=== PATIENT | male | born 1965 | race African-American/Black ===

== ENCOUNTER 2025-08-10 22:22 | Inpatient (IN) | payer MEDICAID ==
[~2025-08-10] VITALS: Ht 182.9 cm; Wt 65.5 kg
[2025-08-11] MEDS: SODIUM CHLORIDE 0.9% 1,000 ML IV ONE (00:59)
[2025-08-11 01:12] LABS: PLATELET COUNT (AUTO) 172 K/uL (150-450); RED BLOOD CELL COUNT(AUTO) 5.01 MIL/uL (4.50-5.90); RED CELL DISTRIBUTION WIDTH 14.6 % (11.5-14.5); WHITE BLOOD COUNT (AUTO) 11.1 K/uL (4.5-11.0)
[2025-08-11 01:15] LABS: CALCIUM, TOTAL 9.1 mg/dL (8.8-10.5); CREATININE 1.07 mg/dL (0.60-1.30); GLOMERULAR FILTR. RATE CALC > 60 mL/min (>60); GLUCOSE,RANDOM 108 mg/dL (70-110); SODIUM SERUM 139 mmol/L (136-145); UREA NITROGEN, BLOOD 16 mg/dL (7-18)
[2025-08-11 01:22] LABS: ASPARTATE AMINOTRANSFERASE 22.0 U/L (15-37); TOTAL PROTEIN, SERUM 7.4 g/dL (6.4-8.2)
[2025-08-11] MEDS: PIPERACILLIN/TAZO 3.375 GM/D5W 50 ML IV ONE (01:39)
[2025-08-11] MEDS: PANTOPRAZOLE SODIUM 40 MG/VIAL IVP ONE (01:39)
[2025-08-11 01:45] LABS: LACTIC ACID 1.1 mmol/L (0.4-2.0)
[2025-08-11] MEDS ORDERED: VALB40CA2 PO (02:40)
[2025-08-11] MEDS ORDERED: OLAN5TAB77 PO (02:40)
[2025-08-11] MEDS ORDERED: TRAZ-184 PO (02:40)
[2025-08-11] MEDS ORDERED: PROP20TA18 PO (02:40)
[2025-08-11] MEDS ORDERED: OLAN15TA21 PO (02:40)
[2025-08-11 15:42] VITALS: BP 165/88; PULSE 158; RESP 17; TEMP 97.7; O2SAT 98
[2025-08-11] MEDS ORDERED: ZOLPIDEM TARTRATE 5 MG TABLET PO PRN (18:15)
[2025-08-11] MEDS ORDERED: MAGNESIUM HYDROXIDE SUSPENSION 30 ML UDCUP PO PRN (18:15)
[2025-08-11] MEDS ORDERED: BISACODYL 10 MG RECTAL RECTAL SUPPOSITORY PR PRN (18:15)
[2025-08-11] MEDS ORDERED: HYDROCODONE/ACETAMINOPHEN 5-325 MG TABLET PO PRN (18:15)
[2025-08-11] MEDS ORDERED: ONDANSETRON HCL 4 MG/2 ML VIAL IVP PRN (18:15)
[2025-08-11] MEDS ORDERED: ACETAMINOPHEN 325 MG TABLET PO PRN (18:15)
[2025-08-11] MEDS ORDERED: MORPHINE SULFATE 2 MG/ML SYRINGE IVP PRN (18:15)
[2025-08-11 19:00] LABS: GLUCOMETER DEV NAME(LOC) 5S.2D; GLUCOSE,POINT OF CARE 120 MG/DL (70-110)
[2025-08-11] MEDS: IPRATROPIUM BROMIDE 0.5 MG/2.5 ML NEB SOLUTION NEB PRN (19:38)
[2025-08-11] MEDS: ALBUTEROL SULFATE 2.5 MG/0.5 ML NEB SOLUTION NEB PRN (19:38)
[2025-08-11 19:43] VITALS: PULSE 87; RESP 25; O2SAT 98
[2025-08-11 19:44] VITALS: PULSE 87; RESP 25; O2SAT 98
[2025-08-11] MEDS: AZITHROMYCIN 500 MG/NS 250 ML IV SCH (20:14)
[2025-08-11] MEDS: PROPRANOLOL HCL 20 MG TABLET PO SCH (20:17)
[2025-08-11] MEDS ORDERED: [UNRECOGNIZED DRUG - OTHER] PO SCH (21:00)
[2025-08-11] MEDS ORDERED: MISC MED-CONVERTED FROM AMBULATORY (Valbenazine Tosylate (Ingrezza) 1 CAPSULE) PO SCH (21:00)
[2025-08-11] MEDS ORDERED: SODIUM CHLORIDE 0.9% 1,000 ML ONE (21:06)
[2025-08-11 21:31] VITALS: BP 126/86; PULSE 93; RESP 19; TEMP 98.6; O2SAT 98
[2025-08-11] MEDS: CefTRIAXone 1 GM/DEXTROSE 50 ML IV SCH (22:45)
[2025-08-11 23:57] VITALS: BP 149/96; PULSE 65; RESP 19; TEMP 99.1; O2SAT 100
[2025-08-12] MEDS: HEPARIN SODIUM,PORCINE 5,000 UNITS/ML VIAL SQ SCH (00:49)
[2025-08-12] MEDS: MORPHINE SULFATE 4 MG/ML SYRINGE IVP PRN (02:11)
[2025-08-12 04:26] VITALS: BP 104/61; PULSE 56; RESP 18; TEMP 97.5; O2SAT 99
[2025-08-12 07:23] LABS: PLATELET COUNT (AUTO) 168 K/uL (150-450); RED BLOOD CELL COUNT(AUTO) 4.46 MIL/uL (4.50-5.90); RED CELL DISTRIBUTION WIDTH 14.7 % (11.5-14.5); WHITE BLOOD COUNT (AUTO) 8.6 K/uL (4.5-11.0)
[2025-08-12 07:28] LABS: APPEARANCE,URINE CLEAR (CLEAR); GLUCOSE, URINE (UA) NEGATIVE (NEGATIVE); LEUKOCYTE ESTERASE ,URINE NEGATIVE (NEGATIVE); NITRATE,URINE NEGATIVE (NEGATIVE); OCCULT BLOOD,URINE NEGATIVE (NEGATIVE); SPECIFIC GRAVITIY, URINE 1.018 (1.003-1.030)
[2025-08-12 07:34] LABS: CALCIUM, TOTAL 8.4 mg/dL (8.8-10.5); CREATININE 1.09 mg/dL (0.60-1.30); GLOMERULAR FILTR. RATE CALC > 60 mL/min (>60); GLUCOSE,RANDOM 87 mg/dL (70-110); SODIUM SERUM 141 mmol/L (136-145); UREA NITROGEN, BLOOD 14 mg/dL (7-18)
[2025-08-12 07:37] VITALS: BP 122/82; PULSE 54; RESP 18; TEMP 97.8; O2SAT 98
[2025-08-12] MEDS: PANTOPRAZOLE SODIUM 40 MG DR TABLET PO SCH (08:31)
[2025-08-12] MEDS: DEXTROSE 5%-0.45% SODIUM CHL 1,000 ML IV SCH (10:15)
[2025-08-12 11:09] VITALS: BP 118/85; PULSE 51; RESP 18; TEMP 98.2; O2SAT 97
[2025-08-12 15:33] VITALS: BP 114/72; PULSE 58; RESP 18; TEMP 98.2; O2SAT 96
[2025-08-12 19:26] VITALS: BP 115/78; PULSE 56; RESP 18; TEMP 99.3; O2SAT 100
[2025-08-12 23:21] VITALS: BP 111/91; PULSE 57; RESP 19; TEMP 98.2; O2SAT 99
[2025-08-13 03:31] VITALS: BP 120/82; PULSE 53; RESP 19; TEMP 97.9; O2SAT 100
[2025-08-13 07:26] LABS: PLATELET COUNT (AUTO) 189 K/uL (150-450); RED BLOOD CELL COUNT(AUTO) 4.59 MIL/uL (4.50-5.90); RED CELL DISTRIBUTION WIDTH 14.5 % (11.5-14.5); WHITE BLOOD COUNT (AUTO) 6.6 K/uL (4.5-11.0)
[2025-08-13 07:31] LABS: CALCIUM, TOTAL 8.5 mg/dL (8.8-10.5); CREATININE 1.01 mg/dL (0.60-1.30); GLOMERULAR FILTR. RATE CALC > 60 mL/min (>60); GLUCOSE,RANDOM 90 mg/dL (70-110); SODIUM SERUM 142 mmol/L (136-145); UREA NITROGEN, BLOOD 13 mg/dL (7-18)
[2025-08-13 08:12] VITALS: BP 138/99; PULSE 64; RESP 18; TEMP 98.1; O2SAT 100
[2025-08-13 12:36] VITALS: BP 144/80; PULSE 62; RESP 18; TEMP 98.4; O2SAT 100
[2025-08-13 15:57] VITALS: BP 114/74; PULSE 58; RESP 17; TEMP 98.4; O2SAT 100
[2025-08-13 19:42] VITALS: BP 131/87; PULSE 56; RESP 19; TEMP 98.4; O2SAT 98
[2025-08-14] VITALS (7 sets, daily range): BP systolic 104–194; BP diastolic 69–174; PULSE 51–72; RESP 17–19; TEMP 98–98.6; O2SAT 95–100
[2025-08-14 06:27] LABS: CALCIUM, TOTAL 8.9 mg/dL (8.8-10.5); CREATININE 0.78 mg/dL (0.60-1.30); GLOMERULAR FILTR. RATE CALC > 60 mL/min (>60); GLUCOSE,RANDOM 86 mg/dL (70-110); SODIUM SERUM 140 mmol/L (136-145); UREA NITROGEN, BLOOD 12 mg/dL (7-18)
[2025-08-14 06:33] LABS: PLATELET COUNT (AUTO) 180 K/uL (150-450); RED BLOOD CELL COUNT(AUTO) 4.83 MIL/uL (4.50-5.90); RED CELL DISTRIBUTION WIDTH 14.1 % (11.5-14.5); WHITE BLOOD COUNT (AUTO) 7.6 K/uL (4.5-11.0)
== END 2025-08-14 17:30 | DRG 137 ==
LOC: EMS 22:26 → EDH 23:34 → 5S 08-11 14:55
PROVIDERS: ADMIT Hospitalist; ATTEND Hospitalist
DX: J69.0 Pneumonitis due to inhalation of food and vomit (principal); F03.90 Unspecified dementia, unspecified severity, without behavioral disturbance, psychotic disturbance, mood disturbance, and anxiety; F20.9 Schizophrenia, unspecified; K20.90 Esophagitis, unspecified without bleeding; Z79.899 Other long term (current) drug therapy
CPT/HCPCS: 70450; 71250; 72192; 74150; 80048; 80076; 81003; 82962; 83605; 83735; 85025; 87040; 87081; 92610; 93005; 94640; 97116; 97162; 97530; 99285; G0378; J0456; J0696; J1644; J2270; J2470; J2543; J7030

== ENCOUNTER 2025-09-08 12:40 | Emergency (ER) | payer MEDICAID ==
[~2025-09-08] VITALS: Ht 167.6 cm; Wt 72.7 kg
[~2025-09-08 12:40] MED LIST: OLAN15TA21 PO; OLAN5TAB77 PO; PROP20TA18 PO; TRAZ-184 PO; VALB40CA2 PO
[2025-09-08 13:47] VITALS: BP 113/72; PULSE 68; RESP 18; TEMP 99; O2SAT 98
[2025-09-08 14:48] LABS: PLATELET COUNT (AUTO) 220 K/uL (150-450); RED BLOOD CELL COUNT(AUTO) 4.64 MIL/uL (4.50-5.90); RED CELL DISTRIBUTION WIDTH 16.5 % (11.5-14.5); WHITE BLOOD COUNT (AUTO) 5.1 K/uL (4.5-11.0)
[2025-09-08 14:51] LABS: CALCIUM, TOTAL 8.7 mg/dL (8.8-10.5); CREATININE 1.11 mg/dL (0.60-1.30); GLOMERULAR FILTR. RATE CALC > 60 mL/min (>60); GLUCOSE,RANDOM 90 mg/dL (70-110); SODIUM SERUM 139 mmol/L (136-145); UREA NITROGEN, BLOOD 16 mg/dL (7-18)
[2025-09-08 14:57] LABS: ASPARTATE AMINOTRANSFERASE 20.0 U/L (15-37); TOTAL PROTEIN, SERUM 6.9 g/dL (6.4-8.2)
== END 2025-09-08 17:00 ==
LOC: EMS 12:40
DX: G24.01 Drug induced subacute dyskinesia (principal); F03.90 Unspecified dementia, unspecified severity, without behavioral disturbance, psychotic disturbance, mood disturbance, and anxiety; F20.9 Schizophrenia, unspecified; Z79.899 Other long term (current) drug therapy
CPT/HCPCS: 71045; 80048; 80076; 85025; 99284; 36415-L1; 36415-TC